=== PATIENT | female | born 1975 | race Caucasian/White ===

== ENCOUNTER → 2020-09-09 | Outpatient (CLI) | payer OTHER ==
[2020-09-09 17:13] LABS: ABSOLUTE RETIC # 108 10e9/uL (24-90); BASOPHILS # (AUTO) 0.1 10^3/uL (0.0-0.1); BASOPHILS % (AUTO) 0 % (0-10); EOSINOPHILS # (AUTO) 0.3 10^3/uL (0.0-0.3); EOSINOPHILS % (AUTO) 3 % (0-10); HEMATOCRIT 45 % (35-52); HEMOGLOBIN 15.4 g/dL (11.5-16.0); LYMPHOCYTES # (AUTO) 4.5 10^3/uL (1.0-4.0); LYMPHOCYTES % (AUTO) 40 % (12-44); MEAN CORPUSCULAR HEMOGLOBIN 31 pg (25-34); MEAN CORPUSCULAR HGB CONC 35 g/dL (32-36); MEAN CORPUSCULAR VOLUME 89 fL (80-99); MEAN PLATELET VOLUME 9.7 fL (9.0-12.2); MONOCYTES # (AUTO) 0.6 10^3/uL (0.0-1.0); MONOCYTES % (AUTO) 6 % (0-12); NEUTROPHILS # (AUTO) 5.7 10^3/uL (1.8-7.8); NEUTROPHILS % (AUTO) 51 % (42-75); PLATELET COUNT 350 10^3/uL (130-400); RETICULOCYTE % 2.15 % (0.50-2.40); WHITE BLOOD COUNT 11.3 10^3/uL (4.3-11.0)
[2020-09-09 17:36] LABS: BAND NEUTROPHILS 0 %; BASOPHILS % (MANUAL) 0 %; EOSINOPHILS % (MANUAL) 2 %; LYMPHOCYTES % (MANUAL) 30 %; MONOCYTES % (MANUAL) 3 %; NEUTROPHILS % (MANUAL) 55 %
[2020-09-09 17:37] LABS: ANISOCYTOSIS SLIGHT; POLYCHROMASIA SLIGHT; REACTIVE LYMPHOCYTES 10 %
== END ==
LOC: LAB 16:26
PROVIDERS: ATTEND Nurse Practitioner Family
DX: R59.9 Enlarged lymph nodes, unspecified (principal); R53.83 Other fatigue; M79.629 Pain in unspecified upper arm
CPT/HCPCS: 36415; 85007; 85027; 85045; 85055; 86618; 86666; 86668; 86757

== ENCOUNTER → 2020-09-22 | Outpatient (CLI) | payer OTHER ==
--- NOTE | 2020-09-22 10:27 | Diagnostic Imaging Report ---
INDICATION: Right upper quadrant pain. PROCEDURE: Ultrasound abdomen complete. TECHNIQUE: Multiple real-time grayscale images were obtained of the abdomen in various projections. There are no prior studies available for comparison. There is no evidence for cholelithiasis or acute cholecystitis and the common bile duct is not dilated. The liver does not appear to be enlarged. There is no focal mass involving the liver and the biliary tree is not abnormally distended. Spectral and color-flow imaging of the portal vein shows the vein is patent. The spleen, kidneys, aorta and inferior vena cava show no sign of an acute abnormality. The pancreas is generally unremarkable. IMPRESSION: 1. There is no acute abnormality of the right upper quadrant. 2. If clinical concern regarding an underlying abnormality of the gallbladder persists and further imaging is desired, then a nuclear medicine hepatobiliary scan would be recommended. Dictated by: Dictated on workstation # [id number]
--- NOTE | 2020-09-23 13:33 | Diagnostic Imaging Report ---
Bilateral breasts limited ultrasound INDICATION: Bilateral axillary lumps COMPARISON: There are no prior studies available for comparison. According to patient, she has had recent mammogram, ultrasound and MRI exams of the breasts in [place], [place], in June of this year. If that study or the reports from that exam are available they would be helpful for comparison. There is a large 2.3 x 0.8 x 0.8 cm lymph node in the right axilla. This lymph node appears to be primarily replaced by fat and consequently I am not certain it is pathologically enlarged. There is no abnormality of the lymph node cortex to suggest a replacement process such as neoplasm or infection. There were 1 or 2 subcentimeter nodes in the left axilla. These were generally unremarkable. There is no other mass or cyst involving either axilla. IMPRESSION: 1. There is an enlarged lymph node in the right axilla but this appears to be primarily replaced by fat. There is no evidence for infection or malignancy. A few small lymph nodes are also seen in the left axilla. 2. If the patient's previous exams are available, they would be helpful for comparison. BI-RADS CATEGORY: 1 NEGATIVE Dictated by: Dictated on workstation # [id number]
== END ==
LOC: RAD 09:00
PROVIDERS: ATTEND Surgery
DX: R59.0 Localized enlarged lymph nodes (principal); R10.11 Right upper quadrant pain
CPT/HCPCS: 76642; 76700

== ENCOUNTER 2020-09-27 11:14 | Emergency (ER) | payer OTHER ==
[~2020-09-27] VITALS: Ht 172.7 cm; Wt 100.0 kg
--- NOTE | 2020-09-27 11:49 | ED Headache ---
General Chief Complaint: Head/Cervical Problems Stated Complaint: MIGRAINE Nursing Triage Note: AMB TO ROOM WITH C/O HEADACHE AND BEING UNDER STRESS. IS MOVING HERE FROM [facility] Nursing Sepsis Screen: No Definite Risk Source: patient Exam Limitations: no limitations History of Present Illness Date Seen by Provider: Sep 27, 2020 Time Seen by Provider: 11:40 Initial Comments Patient is a 45-year-old female who presents to the emergency department today with a chief complaint of frontal headache that extends to the back behind her eyes. Patient states she has had this headache for about 24 hours. Patient has been under significant increased stress recently with undergoing work-up for swollen lymph nodes as well as recently leaving her , staying at a hotel. Patient states she is not been eating, sleeping or drinking very well. She denies fevers, chills, productive cough. No URI symptoms. No abdominal pain, nausea vomiting, diarrhea or genitourinary complaints. She states she has been taking ykmo-pcc-fkizkwd medications such as Tylenol without much relief of symptoms. She does have a prescription for Fioricet that she has to take approximately once a month for migraines but has not had access to it as it is at her house where her is. Patient states usually when her headaches get this bad she comes to the emergency department and gets a shot of Toradol. All other review of systems reviewed and negative except as stated above. Timing/Duration: 24 hours Severity/Quality: severe Location: frontal, parietal Prior Headaches/Recent Trauma: occasional headaches Modifying Factors: worse with exposure to light, worse with movement Associated Symptoms: denies symptoms Allergies and Home Medications Allergies Coded Allergies: Penicillins (Verified Allergy, Unknown, 09/27/20) Patient Home Medication List Home Medication List Reviewed: Yes Review of Systems Review of Systems Constitutional: see HPI Eyes: No Symptoms Reported Ears, Nose, Mouth, Throat: no symptoms reported Respiratory: no symptoms reported Cardiovascular: no symptoms reported Gastrointestinal: other (Vague right flank pain that she has had off-and-on for about 2 weeks) Genitourinary: no symptoms reported Musculoskeletal: no symptoms reported Skin: no symptoms reported All Other Systems Reviewed Negative Unless Noted: Yes Past Rmumlip-Rhypcn-Eualbz Hx Patient Social History Alcohol Use: Occasionally Uses Smoking Status: Current Everyday Smoker Recent Infectious Disease Expo: No Past Medical History Surgeries: Yes Oophorectomy Respiratory: No Cardiac: No Neurological: No Genitourinary: No Gastrointestinal: No Musculoskeletal: No Integumentary: No Physical Exam Vital Signs Vital Signs - First Documented 09/27/20 11:18 Temp 36.1 Pulse 96 Resp 18 B/P (MAP) 147/98 (114) Pulse Ox 96 Capillary Refill : Less Than 3 Seconds Height, Weight, BMI Height: '" Weight: lbs. oz. kg; 33.00 BMI Method: General Appearance: WD/WN, no apparent distress HEENT: PERRL/EOMI Neck: full range of motion, supple Cardiovascular: regular rate, rhythm Respiratory: lungs clear, normal breath sounds, no respiratory distress Gastrointestinal: non tender, soft Extremities: normal range of motion, normal inspection, no pedal edema, no calf tenderness Psychiatric: alert, oriented x 3, depressed affect Crainal Nerves: normal hearing, normal speech, PERRL Motor/Sensory: no motor deficit, no sensory deficit Skin: normal color, warm/dry Progress/Results/Core Measures Results/Orders My Orders Orders - MELODY WATTS MD Ketorolac Injection (Toradol Injection) (09/27/20 12:00) Medications Given in ED Current Medications Medications Dose Ordered Sig/Nakul Route Start Time Stop Time Status Last Admin Dose Admin Ketorolac Tromethamine 60 mg ONCE ONCE IM 09/27/20 12:00 09/27/20 12:01 DC 09/27/20 11:55 60 MG Vital Signs/I&O 09/27/20 11:18 Temp 36.1 Pulse 96 Resp 18 B/P (MAP) 147/98 (114) Pulse Ox 96 Blood Pressure Mean: 114 Progress Progress Note : Time: 12:50 Progress Note Patient reevaluated, she states her headache is "calming down". She feels a little jittery. She is still quite tearful and with relationship to her stressors and leaving her . The patient states that she has mental health assistance through her work. She states that she will utilize this. I will write the patient a new prescription for her Fioricet I have counseled her on the use and the addiction potential of Fioricet. She verbalized understanding. All questions have been sought and answered. Patient is stable for discharge. Departure Impression Primary Impression: Tension type headache Qualified Codes: G44.209 - Tension-type headache, unspecified, not intractable Disposition: 01 HOME, SELF-CARE Condition: Stable Departure-Patient Inst. Decision time for Depature: 11:50 Referrals: [facility]/ [place],LOCAL PHYSICIAN (PCP) Primary Care Physician Patient Instructions: Tension Headache Add. Discharge Instructions: Continue your daily medications as previously prescribed. Use the Fioricet 1 every 6 hours as needed for severe headache. You can also take icfp-vgd-ndolmcm Excedrin as needed for headache. Be cautious with using the Fioricet as it can be addictive. Do not drive and take this medication. Come back to the emergency room for any new, concerning or emergent complaints. Scripts Butalb/Acetaminophen/Caffeine (Xlwokd-Grtsydpa-Lyav 50-325-40) 1 Each Tablet 1 EACH PO Q6H PRN for migraine headache, #15 TAB Prov: MELODY WATTS MD 09/27/20 Copy Copies To 1: LUIS ANGEL ROBERSON KATHRYN M MD Sep 27, 2020 11:49
[2020-09-27] MEDS ORDERED: KETOROLAC 60 MG/2 ML VIAL IM ONE (12:00)
[2020-09-27] MEDS ORDERED: BUTA-235 PO (12:53)
[2020-09-27 13:00] VITALS: BP 134/96
== END 2020-09-27 13:00 | disposition home or self-care (01) ==
LOC: EDUNIT# 11:14 → ER 11:16
DX: G44.209 Tension-type headache, unspecified, not intractable (principal); F17.210 Nicotine dependence, cigarettes, uncomplicated
CPT/HCPCS: 99284